=== PATIENT | female | born 1985 | race Caucasian/White ===

== ENCOUNTER 2024-09-14 14:17 | Emergency (ER) | payer MEDICAID, SELFPAY ==
[2024-09-14 14:21] VITALS: BP 190/104; PULSE 71; RESP 18; TEMP 36.8; O2SAT 100; BMI 47.7
--- NOTE | 2024-09-14 14:24 | ECG_ITS ---
[facility] Test Date: 2024-09-14 Pat Name: Adele Morley Department: Room: Gender: Female Windows Desktop Engineer: : 1985 Requested By: Rianna Covarrubias Order Number: [id number] MD: Mustapha Russell M.D. Measurements Intervals [place] Rate: 67 P: -3 OH: 147 QRS: -3 QRSD: 94 T: -6 QT: 389 QTc: 411 Interpretive Statements SINUS RHYTHM No previous ECG available for comparison Electronically Signed On 09-16-2024 10:28:55 ASSOCIATE LOAN OFFICER by Mustapha Russell M.D. [email or web address]
--- NOTE | 2024-09-14 14:27 | CTR_ITS ---
PROCEDURE INFORMATION: Exam: CT Head Without Contrast Exam date and time: 09/14/2024 3:19 PM Age: 39 years old Clinical indication: Syncope and collapse; Additional info: Brief syncopal episodes TECHNIQUE: Imaging protocol: Computed tomography of the head without contrast. Radiation optimization: All CT scans at this facility use at least one of these dose optimization techniques: automated exposure control; mA and/or kV adjustment per patient size (includes targeted exams where dose is matched to clinical indication); or iterative reconstruction. COMPARISON: No relevant prior studies available. RADIATION DOSE METRICS: Total DLP (mGy-cm): 1101.88 FINDINGS: Brain: Normal. No hemorrhage. Unremarkable white matter. No mass effect. Cerebral ventricles: No ventriculomegaly. Paranasal sinuses: Visualized sinuses are unremarkable. No fluid levels. Mastoid air cells: Visualized mastoid air cells are well aerated. Bones: Unremarkable. No acute fracture. Soft tissues: Unremarkable. CT/CT head wo con* [id number] IMPRESSION: No acute intracranial abnormality.
--- NOTE | 2024-09-14 14:29 | ED_ITS ---
HPI - Seizure 2 General: Chief Complaint: Seizure Stated Complaint: SEIZURES Time Seen by Provider: 09/14/24 14:19 History of Present Illness: HPI Narrative: 39-year-old female who presents emergenc y room with neurologic episodes. She had said she thinks they are seizures. I witnessed several of these while in the room. She will suddenly close her eyes and below her head to 1 side. She will appear asleep for about 2 to 10 seconds and then wake up alert. Apparently she has been the [place] and had an EEG with a neurologist that was shown to not be epileptic seizures. Related Data Home Medications Medication Instructions Recorded Confirmed cholecalciferol (vitamin D3) 1,250 50,000 unit PO Q7D 09/14/24 09/14/24 mcg (50,000 unit) capsule lisinopril 10 mg tablet 10 mg PO DAILY 09/14/24 09/14/24 metformin 500 mg tablet 500 mg PO QAM 09/14/24 09/14/24 pantoprazole 40 mg tablet,delayed 40 mg PO BID 09/14/24 09/14/24 release topiramate 25 mg tablet 25 mg PO BID 09/14/24 09/14/24 Allergies Allergy/AdvReac Type Severity Reaction Status Date / Time acetaminophen [From Vicodin] Allergy ALGY-Redness Verified 09/14/24 14:29 of Skin hydrocodone [From Vicodin] Allergy ALGY-Redness Verified 09/14/24 14:29 of Skin Review of Systems 2 Narrative: Constitutional symptoms: Negative except as documented in HPI. Skin symptoms: Negative except as documented in HPI. Eye symptoms: Negative except as documented in HPI. ENMT symptoms: Negative except as documented in HPI. Respiratory symptoms: Negative except as documented in HPI. Cardiovascular symptoms: Negative except as documented in HPI. Gastrointestinal symptoms: Negative except as documented in HPI. Genitourinary symptoms: Negative except as documented in HPI. Musculoskeletal symptoms: Negative except as documented in HPI. Neurologic symptoms: Negative except as documented in HPI. Psychiatric symptoms: Negative except as documented in HPI. Endocrine symptoms: Negative except as documented in HPI. Physical Exam 2 Narrative: EXAM NARRATIVE: General: Alert, no acute distress. Skin: Warm, dry. Head: Normocephalic, atraumatic. Neck: Supple, trachea midline. Eye: Extraocular movements are intact. Ears, nose, mouth and throat: mucosa moist. Cardiovascular: Regular, Normal peripheral perfusion. Respiratory: Lungs are clear to auscultation, respirations are non-labored, breath sounds are equal, Symmetrical chest wall expansion. Gastrointestinal: Soft, Nontender, Non distended Musculoskeletal: Normal ROM, no deformity. Neurological: Alert and oriented, No focal neurological deficit observed. Episodes of closing eyes and appearing asleep for 2 to 10 seconds with no postictal state. Psychiatric: Cooperative, appropriate mood & affect. Course 2 Vital Signs: Vital signs: Vital Signs Temperature 98.3 F 09/14/24 14:21 Pulse Rate 55 L 09/14/24 16:12 Respiratory Rate 15 09/14/24 16:12 Blood Pressure 157/91 09/14/24 16:12 Pulse Oximetry 96 09/14/24 16:12 Oxygen Delivery Me thod Room Air 09/14/24 16:12 MDM - Seizure MDM Narrative Medical decision making narrative: Medical decision making: Differential diagnosis for this patient with a complaint of seizure like activity would include but not be limited to, and based on the above HPI, review of systems and physical exam: seizure, DT's, alcohol withdrawal, brain malignancy, pseudo-seizure, syncope. Orders placed to evaluate differential diagnosis based on the above differential, HPI and physical exam EKG: Time 1451. Rate 67. Normal sinus rhythm, No ST-T changes, no ectopy, normal GA & QRS intervals, This was reviewed and interpreted by myself the ER physician at 1455 CT head: No acute intracranial process. no intracranial hemorrhage, no evidence of infarct. no evidence of acute fracture.This was reviewed and interpreted by myself the ER physician. Lab Review: Laboratory results were reviewed and interpreted by myself the emergency room physician Mild leukocytosis with a white count of 12. No renal failure. No anemia. Her serum bicarb is low. Blood gas showed hyperventilation with a decreased CO2 and increased pH. I reviewed the patient's medical record. Consultation: Dr. Menjivar with neurology was consulted and saw the patient in the emergency room. She feels this is some sort of functional neurologic response and that may ultimately require psychiatric treatment but she will follow with her in clinic. She does recommend Depacon which is being given prior to discharge Reexamination: Patient remained stable. No increased work of breathing. No altered mental status. No focal motor deficits. When I examine her prior to discharge she is no longer having the episodes. Assessment and plan: Functional neurological problem ?Depacon in the emergency room - Discharged home - Discussed plan with patient. Answered any questions. - Evaluation and treatment of this problem were appropriate in the emergency setting. Lab Data 09/14/24 15:15 09/14/24 15:15 Labs: Radiology Impressions Head CT 09/14/24 14:27 IMPRESSION: No acute intracranial abnormality. Laboratory Results WBC 12.60 10^3/uL (3.29-11.43) H 09/14/24 15:15 RBC 5.80 10^6/uL (3.85-5.65) H 09/14/24 15:15 Hgb 15.60 g/dL (11.27-16.99) 09/14/24 15:15 Hct 51.3 % (36-47) H 09/14/24 15:15 MCV 88.4 fl (85-98) 09/14/24 15:15 MCH 26.9 pg (27-33) L 09/14/24 15:15 MCHC 30.4 g/dL (30-55) 09/14/24 15:15 RDW 15.8 % (12.1-15.1) H 09/14/24 15:15 Plt Count 280 10^3/cmm (157-399) 09/14/24 15:15 MPV 11.0 fL (7.4-10.4) H 09/14/24 15:15 Neut % (Auto) 76.4 % 09/14/24 15:15 Lymph % (Auto) 16.6 % 09/14/24 15:15 [place] % (Auto) 5.6 % 09/14/24 15:15 Eos % (Auto) 0.6 % 09/14/24 15:15 Baso % (Auto) 0.6 % 09/14/24 15:15 Neut # (Auto) 9.63 10^3/uL (1.8-7.7) H 09/14/24 15:15 Lymph # (Auto) 2.1 10^3/uL (0.8-4.8) 09/14/24 15:15 [place] # (Auto) 0.7 10^3/uL (0.2-0.9) 09/14/24 15:15 Eos # (Auto) 0.1 10^3/uL (0.0-0.8) 09/14/24 15:15 Baso # (Auto) 0.1 10^3/uL (0.0-0.1) 09/14/24 15:15 Nucleated RBC % (auto) 0 % 09/14/24 15:15 Nucleated RBCs # 0.0 /100WBC 09/14/24 15:15 Specimen Type Arterial 09/14/24 16:08 Sample Site Radial, left 09/14/24 16:08 ABG pH 7.57 (7.35-7.45) H* 09/14/24 16:08 ABG pCO2 19.8 mmHg (35-45) L* 09/14/24 16:08 ABG pO2 119.0 mmHg (80.0-100.0) H 09/14/24 16:08 ABG PO2/FiO2 Ratio 566 09/14/24 16:08 ABG HCO3 18.0 mmol/L (22-26) L 09/14/24 16:08 ABG O2 Saturation > 99.1 09/14/24 16:08 ABG Base Excess -1.8 mmol/L (-2.0-2.0) 09/14/24 16:08 Rob Test Pos 09/14/24 16:08 A-a O2 Gradient 0.4 mmHg (5-10) L 09/14/24 16:08 Hematocrit 42.5 % (37-47) 09/14/24 16:08 Hgb O2 Saturation 97.8 % (95-100) 09/14/24 16:08 Carboxyhemoglobin 0.9 %THgb (0.4-20.1) 09/14/24 16:08 Methemoglobin 0.9 % (0.4-1.5) 09/14/24 16:08 Total Hemoglobin 13.9 g/dL (12-16) 09/14/24 16:08 Sodium 141.0 mmol/L (131-143) 09/14/24 16:08 Potassium 3.7 mmol/L (3.5-5.0) 09/14/24 16:08 Glucose 113.0 mg/dL (70-115) 09/14/24 16:08 Ionized Calcium 1.2 mmol/L (1.1-1.4) 09/14/24 16:08 O2 Delivery Device Room air 09/14/24 16:08 FiO2 21.0 % 09/14/24 16:08 Talent Program Manager ID Corey 09/14/24 16:08 Sodium 139 mmol/L (136-145) 09/14/24 15:15 Potassium 3.8 mmol/L (3.5-5.1) 09/14/24 15:15 Chloride 106 mmol/L (98-107) 09/14/24 15:15 Carbon Dioxide 17 mmol/L (22-29) L 09/14/24 15:15 Anion Gap 19.8 (5-19) H 09/14/24 15:15 BUN 15 mg/dL (6-20) 09/14/24 15:15 Creatinine 0.7 mg/dL (0.5-0.9) 09/14/24 15:15 GFR Calculation 92.7 mL/min (90-130) 09/14/24 15:15 Glucose 120 mg/dL (65-115) H 09/14/24 15:15 Calculated Osmolality 290 mOsm/kg (285-295) 09/14/24 15:15 Lactic Acid 1.3 mmol/L (0.5-2.2) 09/14/24 17:10 Calcium 10.0 mg/dL (8.5-10.5) 09/14/24 15:15 Total Bilirubin 0.5 mg/dL (0.15-1.2) 09/14/24 15:15 AST 22 U/L (0-32) 09/14/24 15:15 ALT 26 U/L (0-33) 09/14/24 15:15 Alkaline Phosphatase 74 U/L (35-105) 09/14/24 15:15 Ammonia 18 umol/L (11-51) 09/14/24 17:10 Troponin T Baseline < 6 ng/L (0-10) 09/14/24 15:15 Total Protein 7.7 g/dL (6.6-8.7) 09/14/24 15:15 Albumin 4.4 g/dL (3.5-5.2) 09/14/24 15:15 Globulin 3.3 g/dL (1.3-4.6) 09/14/24 15:15 TSH 0.87 uIU/mL (0.27-4.20) 09/14/24 15:15 HCG, Qual Negative (Negative) 09/14/24 17:10 Urine Color Yellow (Yellow) 09/14/24 16:17 Urine Appearance Clear (CLEAR) 09/14/24 16:17 Urine pH 8.5 (5-7) A 09/14/24 16:17 Ur Specific [place] 1.009 (1.005-1.030) 09/14/24 16:17 Urine Protein Negative (Negative) 09/14/24 16:17 Urine Glucose (UA) Negative (Normal) 09/14/24 16:17 Urine Ketones 1+ (Negative) H 09/14/24 16:17 Urine Blood 2+ (Negative) A 09/14/24 16:17 Urine Nitrate Negative (Negative) 09/14/24 16:17 Urine Bilirubin Negative (Negative) 09/14/24 16:17 Urine Urobilinogen 0.2 mg/dL (Negative) 09/14/24 16:17 Ur Leukocyte Esterase Negative (Negative) 09/14/24 16:17 Urine RBC 11-20 /hpf (0-2) H 09/14/24 16:17 Urine WBC 0-5 /hpf (0-5) 09/14/24 16:17 Ur Squamous Epith Cells 0-5 /hpf (0-5) 09/14/24 16:17 Amorphous Sediment Not Reportable 09/14/24 16:17 Urine Bacteria None seen /hpf (NONE) 09/14/24 16:17 Hyaline Casts 0-4 /lpf H 09/14/24 16:17 Urine Opiates Screen Negative ng/mL (Negative) 09/14/24 16:17 Ur Barbiturates Screen Negative ng/mL (Negative) 09/14/24 16:17 Ur Phencyclidine Scrn Negative ng/mL (Negative) 09/14/24 16:17 Ur Amphetamines Screen Negative ng/mL (Negative) 09/14/24 16:17 U Benzodiazepines Scrn Negative ng/mL (Negative) 09/14/24 16:17 Urine Cocaine Screen Negative ng/mL (Negative) 09/14/24 16:17 U Marijuana (THC) Screen Positive ng/mL (Negative) H 09/14/24 16:17 Ethyl Alcohol < 10 mg/dL (0-10) 09/14/24 15:15 All radiology interpretation(s) finalized by discharge Discharge Plan Discharge Patient Disposition: Home Clinical Impression: Neurologic complaint, functional Prescriptions: No Action metformin 500 mg tablet 500 mg PO QAM lisinopril 10 mg tablet 10 mg PO DAILY cholecalciferol (vitamin D3) 1,250 mcg (50,000 unit) capsule 50,000 unit PO Q7D topiramate 25 mg Tablet 25 mg PO BID pantoprazole 40 mg Tablet,Delayed Release (Dr/Ec) 40 mg PO BID Discharge Orders: Discharge ED (Routine); Ordered 09/14/24 Ordered By: Rianna Laguerre Referrals: Nida Menjivar MD [Physician] - 4-7 days (If you do not hear from Dr. Menjivar's clinic please call for an appointment) Discharge Diet: Usual diet Discharge Activity: Increase activity as tolerated Patient Instructions: Opioid Safety, Pain Management Activity Restrictions/Additional Instructions: No driving until cleared by your primary care provider or a neurologist. Thank you for choosing [facility] for your healthcare needs today. Please realize this is an emergency room and that we are providing you with a medical screening exam and this may not be complete and all inclusive of all the testing and or work up that you may need to determine your ailment or severity of your illness. You have been screened and evaluated and felt safe for discharge. Health conditions do change or evolve sometimes and as such it is important that you follow up with your Primary Doctor to be re checked, 3-5 days is a general good time frame for follow up. You are always welcome to return to the ED for re assessment if your symptoms are worsening or you have new concerns Coding Level of Care Code ED Erecting Engineer for Renata Becerril
[2024-09-14 14:40] VITALS: BP 158/95; PULSE 74; RESP 18; O2SAT 100
--- NOTE | 2024-09-14 15:17 | PC.PHAR ---
called pharmacy to verify meds
[2024-09-14 15:26] LABS: Basophils # 0.1 10^3/uL (0.0-0.1); Basophils % 0.6 %; Eosinophils # 0.1 10^3/uL (0.0-0.8); Eosinophils % 0.6 %; Hematocrit 51.3 % (36-47); Lymphocytes # 2.1 10^3/uL (0.8-4.8); Lymphocytes % 16.6 %; Mean Corpuscular HGB Conc 30.4 g/dL (30-55); Mean Corpuscular Hemoglobin 26.9 pg (27-33); Mean Corpuscular Volume 88.4 fl (85-98); Monocytes # 0.7 10^3/uL (0.2-0.9); Monocytes % 5.6 %; Neutrophils # 9.63 10^3/uL (1.8-7.7); Neutrophils % 76.4 %; Nucleated Red Blood Cells % 0 %; Platelet Count 280 10^3/cmm (157-399); Red Cell Distribution Width 15.8 % (12.1-15.1)
[2024-09-14 15:52] LABS: Alanine Aminotransferase 26 U/L (0-33); Albumin Level 4.4 g/dL (3.5-5.2); Alkaline Phosphatase 74 U/L (35-105); Blood Urea Nitrogen 15 mg/dL (6-20); Carbon Dioxide 17 mmol/L (22-29); Chloride 106 mmol/L (98-107); Globulin 3.3 g/dL (1.3-4.6); Glomerular Filtration Rate 92.7 mL/min (90-130); Glucose 120 mg/dL (65-115); Osmolality Calculated 290 mOsm/kg (285-295); Sodium 139 mmol/L (136-145); Total Bilirubin 0.5 mg/dL (0.15-1.2); Total Protein 7.7 g/dL (6.6-8.7)
[2024-09-14 15:55] LABS: Anion Gap 19.8 (5-19); Potassium 3.8 mmol/L (3.5-5.1)
[2024-09-14 15:56] LABS: Aspartate Amino Transferase 22 U/L (0-32)
[2024-09-14 16:08] LABS: Troponin(5th) Baseline < 6 ng/L (0-10)
[2024-09-14 16:12] VITALS: BP 157/91; PULSE 55; RESP 15; O2SAT 96
[2024-09-14 16:19] LABS: ABG PCO2 19.8 mmHg (35-45); ABG PH Result 7.57 (7.35-7.45); Alveolar-Arterial Oxygen Gradi 0.4 mmHg (5-10); Arterial Blood Gas Hematocrit 42.5 % (37-47); Base Excess ABG -1.8 mmol/L (-2.0-2.0); Blood Gas Allen Test Pos; Blood Gas Operator Identificat WALCI; Blood Gas Sample Site Radial, left; Blood Gas Sample Type Arterial; Carboxyhemoglobin 0.9 %THgb (0.4-20.1); HGB O2 Sat 97.8 % (95-100); Ionized Calcium Level - ABG 1.2 mmol/L (1.1-1.4); Methemoglobin 0.9 % (0.4-1.5); Oxygen Device ROOM AIR; Oxygen Saturation ABG > 99.1; PO2 FiO2 Ratio Arterial Blood 566; Potassium Level - ABG 3.7 mmol/L (3.5-5.0); Total Hemoglobin 13.9 g/dL (12-16)
[2024-09-14 16:32] LABS: Bilirubin Urine Negative (Negative); Blood Urine 2+ (Negative); Glucose Urine UA Negative (Normal); Ketones Urine 1+ (Negative); Leukocyte Esterase Urine Negative (Negative); Nitrate Urine Negative (Negative); Protein Urine Negative (Negative); Specific Gravity, Urine 1.009 (1.005-1.030); Urine Appearance Clear (CLEAR); Urine Color Yellow (Yellow); Urobilinogen Urine 0.2 mg/dL (Negative); pH Urine 8.5 (5-7)
[2024-09-14 16:34] LABS: Bacteria Urine None Seen /hpf; Hyaline Casts Urine 0-4 /lpf; Squamous Epithelial Cell Urine 0-5 /hpf (0-5); WBC Urine 0-5 /hpf (0-5)
[2024-09-14 16:37] LABS: Add Urine Culture? Yes
[2024-09-14 16:38] LABS: Amphetamines Screen Urine Negative (Negative); Barbiturates Screen Urine Negative (Negative); Benzodiazepines Screen Urine Negative (Negative); Cocaine Screen Urine Negative (Negative); Opiate Screen Urine Negative (Negative); PCP Screen Urine Negative (Negative); THC Screen Urine Positive (Negative)
[2024-09-14 16:47] LABS: Thyroid Stimulating Hormone 0.87 uIU/mL (0.27-4.20)
[2024-09-14 16:48] LABS: Alcohol Level < 10 mg/dL (0-10)
[2024-09-14 17:44] LABS: Ammonia 18 umol/L (11-51); Lactic Sepsis W/Reflex 1.3 mmol/L (0.5-2.2)
[2024-09-14 17:45] LABS: HCG, Serum Qual Negative (Negative)
[2024-09-14] MEDS: valproic acid inj 500 MG in sodium chloride 0.9% 50 ML 55 MG IV (18:52)
[2024-09-14 18:58] VITALS: BP 151/91; PULSE 96; RESP 20; O2SAT 100
[2024-09-14 19:57] VITALS: BP 128/84; PULSE 82; RESP 16; O2SAT 96
--- NOTE | 2024-09-17 13:09 | P.CONIM_ITS ---
Providers/Reason For Consult 2 Consulting Physician/Specialty*: Rianna Laguerre MD Reason for Consult*: Refractory seizure-like events Primary Care Provider: Sung Castrejon History of Present Illness History of Present Illness Adele Morley is a 39 year old female who has been in the emergency department this afternoon having multiple events in which she suddenly closes her eyes and her head falls to one side. She reported to Dr. Laguerre that she has been doing this for several days and that it began while she was in the hospital at [place]. She was seen by Dr. Shahid there and diagnosed with nonepileptic events. She has been having many of these this afternoon and Dr. Laguerre wanted to make sure that it was okay to send her home. The patient says that she went to [facility] with severe abdominal pain, was diagnosed with something there and shipped to [place]. No other hospitals were available. That was on Wednesday and then on Wednesday she started having these episodes repeatedly. She had an EEG and Dr. Shahid told her that she was not having seizures. After she got home she was started on topiramate 25 mg twice daily for migraines. She is not having a migraine. She has paresthesias that he was having even before she started the Topamax. She has a fuzzy feeling in her head. Overall she does not feel well. She has received a lot of neurologic care through the years. She was worked up in [place] and then in [place] and was told that she has no residual vestibular function and that is why she cannot walk. She suffers from borderline personality disorder and bipolar disorder. She currently does not have a provider for these diagnoses. Review of Systems 2 Const: Denies: fever(s), change in weight or fatigue Eyes: Denies: change in vision, blurry vision, blind spots, photophobia, eye discomfort, seeing flashes or other (Glaucoma) ENMT: Denies: odynophagia, hoarseness, change in hearing, tinnitus, sinus pain or other (Loss of taste/smell) Card: Denies: chest pain, palpitations, syncope or other (Calf cramps) Resp: Denies: dyspnea, non-productive cough, wheezing or hemoptysis GI: Reports: abdominal pain, diarrhea and constipation; Denies: nausea, heartburn or hematochezia : Denies: urinary frequency or urinary incontinence Musc: Reports: neck pain and back pain; Denies: muscle weakness or other (Muscle pain) Skin/Breast: Denies: rash, new lesions or breast mass Neuro: Reports: headache(s), numbness in extremities, weakness in extremities, sensory changes, lack of coordination, difficulty walking, frequent falls, dizziness, vertigo, Slurred speech present, seizure-like activity, involuntary movements and other (Sleep Apnea) Psych: Reports: anxiety, depression, mood swings, irritability, memory loss and difficulty concentrating; Denies: other (Personality changes) Endo: Denies: polyuria, polydipsia, excessive sweating or change in body appearance Lang/Lymph: Denies: easy bruising, easy bleeding or enlarged lymph nodes Medications/Allergies Home Medications Medication Instructions Recorded Confirmed Last Taken Type cholecalciferol (vitamin D3) 1,250 50,000 unit PO Q7D 09/14/24 09/14/24 Unknown History mcg (50,000 unit) capsule lisinopril 10 mg tablet 10 mg PO DAILY 09/14/24 09/14/24 Unknown History metformin 500 mg tablet 500 mg PO QAM 09/14/24 09/14/24 Unknown History pantoprazole 40 mg tablet,delayed 40 mg PO BID 09/14/24 09/14/24 Unknown History release topiramate 25 mg tablet 25 mg PO BID 09/14/24 09/14/24 Unknown History Allergies Allergy/AdvReac Type Severity Reaction Status Date / Time acetaminophen [From Vicodin] Allergy ALGY-Redness Verified 09/14/24 14:29 of Skin hydrocodone [From Vicodin] Allergy ALGY-Redness Verified 09/14/24 14:29 of Skin Vitals/I&O/Wt Last Vital Signs Temp 98.3 F 09/14/24 14:21 Pulse 82 09/14/24 19:57 Resp 16 09/14/24 19:57 BP 128/84 09/14/24 19:57 Pulse Ox 96 09/14/24 19:57 O2 Del Method Room Air 09/14/24 18:58 Physical Exam 2 Narrative: GENERAL: The patient was overweight. She was experiencing frequent events that were all pretty much the same in which she seemed to abruptly fall asleep and fall to the left. MENTAL STATUS: Flat affect. Pleasant and of above average intelligence. CRANIAL NERVES: Visual acuity was intact to reading small print. Visual waite were full to confrontation, direct and consensual. Extraocular movements were full without nystagmus. Both slow pursuit and saccadic eye movements were normal. PERRLA. Face was symmetric at rest and with grimace. Facial sensation was intact in all three distributions of the fifth cranial nerve bilaterally to touch. Hearing was intact to soft spoken voice. Tongue and palate were midline at rest and with protrusion of the tongue and elevation of the palate. Shoulders were symmetric at rest and with shoulder shrug. MOTOR: She gives very poor resistance throughout. No drift of the upper extremities. Fine movements slow and deliberate. SENSATION: Pin, touch, vibration and proprioception were intact in the four extremities distally. COORDINATION: She could not sit up without falling over. She wobbles from [id number] and then fell to the left. DEEP TENDON REFLEXES: 2/4 throughout. GAIT: Not tested. 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 HEENT: Normocephalic without dysmorphic features. Conjunctivae were not injected and sclerae were nonicteric. NECK: Carotid upstroke was strong bilaterally without bruits. The thyroid was not enlarged and there were no palpable lymph nodes. CHEST: Clear to auscultation. CARDIOVASCULAR: The heart sounds were normal without murmur or gallop. Regular rate and rhythm. EXTREMITIES: There was no edema or cyanosis. The skin was unremarkable. The spine exhibited normal thoracic kyphosis and normal lumbar lordosis without deformities. Data 09/14/24 15:15 09/14/24 15:15 Micro: Microbiology 09/14/24 16:17 Urine Culture - Final Urine,Clean Catch A&P Assessment and plan (1) Neurologic complaint, functional: CT head was negative. Blood gases consistent with hyperventilation. White count slightly elevated at 12.6. CMP was unremarkable except her CO2 was low consistent with hyperventilation. She indicates that she stops breathing during these episodes but she is keeping her CO2 down. 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 She has required a lot of neurologic care in the past. I have invited her to follow-up in my office and we will try to get her an appointment fairly rapidly. Shade was given on the chance that this was a migraine equivalent in hopes of improving her headache/numb headed feelings. I spent an extensive amount of time explaining functional neurologic disorder to the patient and her father and I referred her to the website [email or web address]. She was already visiting before I left and I explained to her that the treatment is education. (3) Functional gait abnormality: Consult Attestations 2 Medical Necessity Statement: she says that she cannot walk and she cannot stop having these episodes Critical Care Time: 60 minutes Coding Level of Care Code Acute Code for g Fwd Diagnoses Neurologic complaint, functional R29.818 Functional neurological symptom disorder with attacks or seizures F44.5 Functional gait abnormality R26.89
== END 2024-09-14 19:50 | disposition home or self-care (01) ==
PROVIDERS: Emergency Provider Emergency Medicine; PCP Family Medicine
DX: R29.90 Unspecified symptoms and signs involving the nervous system (principal)
CPT/HCPCS: 36415; 36600; 70450; 80051; 80053; 80306; 80307; 81001; 82140; 82330; 82805; 83605; 84443; 84484; 84703; 85025; 87086; 93005; 96374; 99285; J3490